=== PATIENT | female | born 1995 | race Caucasian/White ===

== ENCOUNTER → 2016-11-02 | Outpatient (CLI) | payer BC, MEDICAID ==
[~2016-11-02] MED LIST: ZOFRAN4 MG PO
[2016-11-02 18:50] LABS: LYMPH % 29.2 % (10-50.0)
[2016-11-02 18:59] LABS: HEMOGLOBIN 13.9 g/dL (12.2-16.2)
[2016-11-02 20:21] LABS: BUN 10 mg/dL (7-18)
[2016-11-02 20:22] LABS: GFR (ESTIMATED) 91 ML/MIN (59-)
[2016-11-04 08:43] LABS: Folate (Folic Acid) 13.2 ng/mL (>3.0)
== END ==
LOC: LAB 17:18
PROVIDERS: Physician Assistant
DX: Z13.0 Encounter for screening for diseases of the blood and blood-forming organs and certain disorders involving the immune mechanism (principal); Z13.21 Encounter for screening for nutritional disorder; Z13.1 Encounter for screening for diabetes mellitus; Z13.29 Encounter for screening for other suspected endocrine disorder